=== PATIENT | male | born 1980 | race Caucasian/White ===

== ENCOUNTER 2022-01-24 07:13 | Emergency (ER) | payer OTHER ==
[~2022-01-24 07:13] MED LIST: ACETAMINOPHEN500 M1 PO; AUGMENTIN 875-1 EACH PO; COLACE100 MG PO; LEVSIN-SL0.125 M1 SL; LEVSIN-SL0.125 MG SL; MOTRIN600 MG PO; NORCO 5-325 TA1 EACH PO; OXY-IR 5MG5 MG PO; PHENERGAN25 M1 PO
[2022-01-24 07:52] LABS: BASOPHIL 0.2 % (0-2); EOSINOPHIL 0.1 % (0-5); HCT 46.7 % (42.0-52.0); HGB 15.8 g/dl (13.2-18.0); LYMPHOCYTE 7.5 % (15-48); MCH 30.5 pg (25.0-31.0); MCHC 33.8 g/dL (32.0-36.0); MCV 90.2 fL (78.0-100.0); MONOCYTE 4.4 % (0-12); MPV 10.2 fL (6.0-9.5); NEUTROPHIL 87.2 % (41-80); NRBC 0; PLT 293 K/uL (150-400); RBC 5.18 M/uL (4.70-6.00); RDW 12.9 % (11.5-14.0); WBC 18.1 K/uL (4.0-10.5)
[2022-01-24 08:19] LABS: LACTIC ACID 0.9 mmol/L (0.4-1.9)
[2022-01-24 08:23] LABS: BILIRUBIN - TOTAL 1.5 mg/dL (0.2-1.0); BUN/CREAT RATIO (CALC) 9.7 RATIO; CREATININE 1.03 mg/dL (0.67-1.17); GLOBULIN (CALCULATION) 4.3 g/dL; MAGNESIUM 2.1 mg/dL (1.8-2.4); POTASSIUM 4.3 mmol/L (3.5-5.1); TOTAL PROTEIN 8.3 g/dL (6.4-8.2)
[2022-01-24] MEDS ORDERED: AMOX TR-K CLV1 EAC4 PO (10:28)
[2022-01-24] MEDS ORDERED: LAX STOOL SOFT1 EACH PO (10:28)
[2022-01-24] MEDS ORDERED: NORCO 5-325 TA1 EACH PO (10:28)
[2022-01-24] MEDS ORDERED: ONDANSETRON ODT4 MG PO (10:28)
== END 2022-01-24 10:57 | disposition home or self-care (01) ==
LOC: FER 07:13
PROVIDERS: Emergency Medicine
DX: K57.32 Diverticulitis of large intestine without perforation or abscess without bleeding (principal); Z88.6 Allergy status to analgesic agent
CPT/HCPCS: 36415; 80053; 83605; 83690; 83735; 84145; 84439; 84443; 84484; 85025; 93005; J1170; J2405; J2543; J7030; Q9967

== ENCOUNTER → 2022-05-12 | Day surgery (SDC) | payer OTHER ==
[~2022-05-12] VITALS: Ht 172.7 cm; Wt 113.4 kg
[~2022-05-12] MED LIST changes: +AMOX TR-K CLV1 EAC4 PO; +LAX STOOL SOFT1 EACH PO; +ONDANSETRON ODT4 MG PO
[2022-05-12 06:30] LABS: HCT 45.7 % (42.0-52.0); HGB 15.5 g/dl (13.2-18.0); MCH 29.9 pg (25.0-31.0); MCHC 33.9 g/dL (32.0-36.0); MCV 88.2 fL (78.0-100.0); RBC 5.18 M/uL (4.70-6.00); RDW 13.1 % (11.5-14.0); WBC 9.7 K/uL (4.0-10.5)
[2022-05-12 07:01] LABS: ALBUMIN 3.7 g/dL (3.4-5.0); BILIRUBIN - TOTAL 1.3 mg/dL (0.2-1.0); BUN/CREAT RATIO (CALC) 7.4 RATIO; CREATININE 0.81 mg/dL (0.67-1.17); GLOBULIN (CALCULATION) 3.7 g/dL; POTASSIUM 3.6 mmol/L (3.5-5.1); TOTAL PROTEIN 7.4 g/dL (6.4-8.2)
== END | disposition home or self-care (01) ==
LOC: FAS 05:53
PROVIDERS: Student in an Organized Health Care Education/Training Program
DX: K63.5 Polyp of colon (principal); K57.30 Diverticulosis of large intestine without perforation or abscess without bleeding; K52.9 Noninfective gastroenteritis and colitis, unspecified; K21.9 Gastro-esophageal reflux disease without esophagitis; Z88.5 Allergy status to narcotic agent; Z79.899 Other long term (current) drug therapy
CPT/HCPCS: 36415; 80053; 82150; 83690; 84439; 84443; 84480; 84481; J2250; J2704; J7120